=== PATIENT | male | born 1935 | race Caucasian/White ===

== ENCOUNTER 2019-06-17 07:04 | Emergency (ER) | payer MEDICARE, OTHER ==
--- NOTE | 2019-06-17 07:11 | UC ---
UC General HPI - HPI Summary HPI Summary: Patient is an 84-year-old gentleman with a past medical history significant for diabetes, hypertension, BPH status post surgery. Patient had a spinal decompression surgery on Wednesday at [facility]. Patient states it was same day procedure Patient states he had a Loza during the procedure that was removed prior to him leaving. Patient states since this time he has producible output of urine. Patient states he feeling these to go by very little comes out when he tries to people. Patient states he feels pressure was lower belly. Patient has nausea vomiting. Patient also reports decreased stool since his surgery. Patient's taking Vicodin for pain. Patient states he used over-the- counter stool softener starting yesterday. He reports he doesn't feel necessarily constipated states he hasn't had a bowel movement since. No pain in his penis or testicles. No hematuria. No fevers or chills. Patient denies any noted drainage from his wound but has not removed the bandage. Patient has not contacted his surgeon. Patient does have a remote history of BPH for which he had surgery several years ago. Patient medication reviewed this visit. - History of Current Complaint Stated Complaint: BLADDER COMPLAINT Hx Obtained From: Patient, Family/Microbiology Lab Technician - Allergy/Home Medications Allergies/Adverse Reactions: Allergies Allergy/AdvReac Type Severity Reaction Status Date / Time No Known Allergies Allergy Verified 06/17/19 07:24 Home Medications: Home Medications Allopurinol TAB* [Zyloprim 300 MG TAB*] 1 tab PO DAILY 06/17/19 [History Confirmed 06/17/19] Cholecalciferol TAB* [Vitamin D TAB*] 1,000 unit PO DAILY 06/17/19 [History Confirmed 06/17/19] HYDROcodone/ACETAMIN 5-325 MG* [Hudson 5-325 TAB*] 1 tab PO Q4H PRN MDD 6 [History Confirmed 06/17/19] Methocarbamol TAB* [Robaxin 500 MG TAB*] 1 tab PO DAILY 06/17/19 [History Confirmed 06/17/19] Omeprazole 40 mg PO BEDTIME 06/17/19 [History Confirmed 06/17/19] metFORMIN* [Glucophage 500 MG TAB *] 500 mg PO DAILY 06/17/19 [History Confirmed 06/17/19] PMH/Surg Hx/FS Hx/Imm Hx Previously Healthy: No Endocrine History: Diabetes Cardiovascular History: Hypertension - Surgical History Surgical History: Yes Surgery Procedure, Year, and Place: 2011-BILATERAL CATARACT REMOVAL- [facility]NDO[facility] [place]. RIGHT KNEE REPLACED- 2011. RIGHT KNEE ARTHROSCOPY - 2006- [place]. LEFT KNEE ARTHROSCOPY - 2005- [place]. TURP - THEN 2 MORE SINCE. RIGHT FOOT, REPAIR WITH PIN INSERTION - . Trigger Finger Release 07/06 - Family History Known Family History: Positive: Cardiac Disease, Hypertension, Non-Contributory - Social History Occupation: Retired Lives: With Family Alcohol Use: None Substance Use Type: None Smoking Status (MU): Never Smoked Tobacco Review of Systems All Other Systems Reviewed And Are Negative: Yes Constitutional: Positive: Negative Skin: Positive: Negative Gastrointestinal: Positive: Other - decreased Genitourinary: Positive: Frequency, Urgency, Other - Feeling urine retention Is Patient Immunocompromised?: No Physical Exam - Summary Physical Exam Summary: Vital Signs Reviewed: Yes A+Ox3, no distress Eyes: Conjunctiva Clear, ENT: Hearing grossly normal, mmmoist Neck: Positive: Supple Respiratory: Positive: No respiratory distress, No accessory muscle use + CTA throughout no w/r Cardiovascular: RRR nl s1, s2 no m/r CBT <2 sec abd soft + BS, soft mild TTP suprapubic, no guarding, minimal distended, no diffuse tenderness Musculoskeletal Exam: DOLAN x 4 without difficulty Strength Intact, ROM Intact Neurological: Positive: Alert, + sensation throughout Psychological: Positive: Normal Response To helmet hat puncher Skin: Positive: mildline lumbar surgical bandage in place c/d no drainage noted from bathroom. No warmth, erythema surrounding bandage Triage Information Reviewed: Yes Re-Evaluation - Re-Evaluation First Eval Comment: 16 Setswana catheter - unable to pass at despite multiple attempts. Recommend pt to ED for cath and loza placement. spoke to Dr. Talavera in ED - aware pt is coming by private vehicle Course/Dx - Course Course Of Treatment: Patient presents to urgent care stating that he has not been able to easily urinate since his spinal surgery on . Patient states he had a catheter during the procedure. Patient states since this time he feels the need to urinate. Patient states this hasn't seen an very little urine produced. Patient denies nausea vomiting. Patient states he feels mildly distended patient states he just remained like to go again. Patient with a remote history of BPH where she had surgery. No history of prostate cancer. Patient denies any hematuria. Patient also states she's not had good bowel movement since the procedure. Patient states she's on Vicodin. Stretching over-the- counter equate stool softener yesterday. Patient with little results after that. Patient states he does not feel constipated just decreased bowel movements. On exam blood pressure slightly elevated. Patient with a history of same. Patient did produce a little bit a urine here that was negative for infection or blood. Patient with mild tenderness over suprapubic area. Patient states he feels like he needs urinate. We'll place catheter. Patient aware we only have one face, urgent care unable to place we'll send emergency permit. Patient also aware that if we place a catheter and there is not much produced will likely recommend the emergency department for further evaluation and testing. Patient and his are comfortable and in agreement with plan. If there is retained urine, will discharge with catheter in place. Pt with elevated BP - history of same - related to presentation - Diagnoses Provider Diagnosis: Urinary frequency Discharge - Sign-Out/Discharge Documenting (check all that apply): Patient Departure All imaging exams completed and their final reports reviewed: No - Discharge Plan Condition: Stable Disposition: HOME-RECOMMEND TO ED Patient Education Materials: Urinary Retention in Men (ED) Referrals: Raji Lamar MD [Primary Care Provider] - Additional Instructions: The doctor that evaluated you today thinks that you need additional testing that can be completed the emergency department. It is recommended that you go directly to emergency department for further evaluation. This evaluation may include blood work or imaging. This testing will be directed and decided by the provider that evaluate you at the emergency department. If pain becomes worse, you feel lightheaded, you have uncontrolled vomiting, or you have any other concerns while you are being driven to emergency department as recommended to pullover and contact 911. - Billing Disposition and Condition Condition: STABLE Disposition: Home-Recommend to ED
[2019-06-17 07:21] VITALS: BP 172/82
--- NOTE | 2019-06-17 09:01 | UC ---
Course/Dx - Diagnoses Provider Diagnoses: Urinary frequency Discharge - Sign-Out/Discharge Documenting (check all that apply): Patient Departure All imaging exams completed and their final reports reviewed: No Studies - Discharge Plan Condition: Stable Disposition: HOME-RECOMMEND TO ED Patient Education Materials: Urinary Retention in Men (ED) Referrals: Raji Lamar MD [Primary Care Provider] - Additional Instructions: The doctor that evaluated you today thinks that you need additional testing that can be completed the emergency department. It is recommended that you go directly to emergency department for further evaluation. This evaluation may include blood work or imaging. This testing will be directed and decided by the provider that evaluate you at the emergency department. If pain becomes worse, you feel lightheaded, you have uncontrolled vomiting, or you have any other concerns while you are being driven to emergency department as recommended to pullover and contact 911. - Billing Disposition and Condition Condition: STABLE Disposition: Home-Recommend to ED
== END 2019-06-17 08:04 | disposition home health service (06) ==
LOC: UCEAST 07:04
DX: R35.0 Frequency of micturition (principal); Z86.69 Personal history of other diseases of the nervous system and sense organs; Z98.890 Other specified postprocedural states; E11.9 Type 2 diabetes mellitus without complications; I10 Essential (primary) hypertension; Z87.438 Personal history of other diseases of male genital organs; Z79.84 Long term (current) use of oral hypoglycemic drugs
CPT/HCPCS: 81002; 99212; G0463

== ENCOUNTER 2019-06-17 08:18 | Emergency (ER) | payer MEDICARE, OTHER ==
[2019-06-17] MEDS ORDERED: HYDROcodone/ACETAMIN 5-325 MG* 1 TAB PO ONE (10:20)
[2019-06-17 11:12] VITALS: BP 156/75
--- NOTE | 2019-06-17 11:37 | ED ---
GI/ HPI - HPI Summary HPI Summary: Patient is an 84-year-old male with a recent [place]. Since that time, the patient is endorsing left anterior thigh paresthesias, fairly intermittent, worse right now which is affecting his gait. He does endorse severe low back pain and has had this since surgery. During the surgery, for catheter was placed, however was removed immediately following surgery. He was unable to urinate at that time, but was still discharged home. He has not had a bowel movement since the surgery, however he remains on opioids. Since surgery, he states he has developed urinary retention. Endorsing "dribbling" over the past 5 days and the feel to urinate. Denies paresthesias to the penile area or the perianus. Denies upper back pain. - History of Current Complaint Chief Complaint: EDUrogenitalProblems Time Seen by Provider: 06/17/19 08:58 Stated Complaint: CATHETER INSERTION PER PT Hx Obtained From: Patient, Family/Drain Technician Onset/Duration: Started Days Ago Timing: Constant Severity: Moderate Current Severity: Moderate Pain Intensity: 7 Pain Characteristics: Sharp Associated Signs and Symptoms: Positive: UTI Symptoms Aggravating Factor(s): Nothing Alleviating Factor(s): Nothing - Allergy/Home Medications Allergies/Adverse Reactions: Allergies Allergy/AdvReac Type Severity Reaction Status Date / Time No Known Allergies Allergy Verified 06/17/19 08:23 PMH/Surg Hx/FS Hx/Imm Hx Previously Healthy: Yes Endocrine/Hematology History: Denies: Hx Diabetes, Hx Sickle Cell Disease, Hx Thyroid Disease Cardiovascular History: Reports: Hx Hypercholesterolemia, Hx Hypertension - on meds Denies: Hx Pacemaker/ICD, Other Cardiovascular Problems/Disorders Respiratory History: Reports: Other Respiratory Problems/Disorders - new dx pneumonia Denies: Hx Asthma, Hx Chronic Obstructive Pulmonary Disease (COPD) GI History: Reports: Hx Gastroesophageal Reflux Disease - ON NEXIUM Denies: Hx Ulcer History: Denies: Other Problems/Disorders Musculoskeletal History: Reports: Hx Arthritis - KNEES, RIGHT SHOULDER, Hx Bursitis - SHOULDER, DX IN EARLY S Denies: Hx Tendonitis, Other Musculoskeletal History Sensory History: Reports: Hx Cataracts - BILATERAL EYES, Hx Contacts or Glasses - GLASSES, Hx Hearing Aid - BILATERAL Opthamlomology History: Reports: Hx Cataracts - BILATERAL EYES, Hx Contacts or Glasses - GLASSES Neurological History: Denies: Other Neuro Impairments/Disorders Psychiatric History: Denies: Hx Panic Disorder - Cancer History Cancer Type, Location and Year: Basal Cell - Surgical History Surgery Procedure, Year, and Place: 2011-BILATERAL CATARACT REMOVAL- [place] [facility] [place]- 2011 [place]. RIGHT KNEE ARTHROSCOPY - 2006- [place]. LEFT KNEE ARTHROSCOPY - 2005- [place]. TURP - THEN 2 MORE SINCE. RIGHT FOOT, REPAIR WITH PIN INSERTION - . Trigger Finger Release 07/06 Hx Anesthesia Reactions: No - Immunization History Hx Pertussis Vaccination: No Immunizations Up to Date: Yes Infectious Disease History: No Infectious Disease History: Denies: Hx Hepatitis, Hx Human Immunodeficiency Virus (HIV), History Other Infectious Disease, Traveled Outside the [place] in Last 30 Days - Family History Known Family History: Positive: Cardiac Disease, Hypertension, Non-Contributory - Social History Occupation: Unemployed Lives: With Family Alcohol Use: None Hx Substance Use: No Substance Use Type: Reports: None Hx Tobacco Use: No Smoking Status (MU): Never Smoked Tobacco Review of Systems Constitutional: Negative Negative: Fever, Fatigue, Skin Diaphoresis Negative: Palpitations, Chest Pain Negative: Shortness Of Breath, Cough Gastrointestinal: Negative Negative: Abdominal Pain, Vomiting Positive: other - retention Positive: Paresthesia - left anterior thigh. Negative: Headache, Weakness, Numbness, Syncope Psychological: Normal All Other Systems Reviewed And Are Negative: Yes Physical Exam Triage Information Reviewed: Yes Vital Signs On Initial Exam: Initial Vitals Temp Pulse Resp BP Pulse Ox 98.0 F 90 19 198/75 92 06/17/19 08:21 06/17/19 08:21 06/17/19 08:21 06/17/19 08:21 06/17/19 08:21 Vital Signs Reviewed: Yes Appearance: Positive: Well-Appearing, Well-Nourished Skin: Positive: Warm, Skin Color Reflects Adequate Perfusion Head/Face: Positive: Normal Head/Face Inspection Eyes: Positive: EOMI, GABRIELA, Conjunctiva Clear Respiratory/Lung Sounds: Positive: Clear to Auscultation, Breath Sounds Present Cardiovascular: Positive: RRR, Pulses are Symmetrical in both Upper and Lower Extremities Male Genital Exam: Positive: Normal Genitalia, Other - no paresthesias to penis or perianal region. Negative: Epididymal Tenderness, Hernia Mass, Inguinal Tenderness, Scrotum Tenderness (R), Scrotum Tenderness (L), Testicular Tenderness (R), Testicular Tenderness (L), Urethral Discharge Diagnostics - Vital Signs Vital Signs Temp Pulse Resp BP Pulse Ox 06/17/19 11:10 98.1 F 68 20 156/75 95 06/17/19 08:21 98.0 F 90 19 198/75 92 - Laboratory Lab Statement: Any lab studies that have been ordered have been reviewed, and results considered in the medical decision making process. GIGU Course/Dx - Course Course Of Treatment: This patient is evaluated for acute low back pain and urinary retention following an L4-L5 laminectomy from [facility]. Patient states he has not had the ability to urinate since his surgery 4 days ago. He states he has been dribbling, but feels the need to urinate. He has never had this in the past. He does have an enlarged prostate as well as prostate CA. Catheter placed on arrival d/t urinary retention and immediately obtained 600ml. On physical examination, pt has paresthesias to the left anterior thigh without paresthesias to the anal or penile region. Good rectal tone. No Lhermitte sign. Discussed case with Dr. Crowell from [facility] who is covering for Dr. Christianson. He does not feel this requires an MRI based on good rectal tone and advises f/u in the office on Wednesday. - Diagnoses Differential Diagnoses - Male: Urinary Tract Infection, Other - cauda equina, BPH, spinal cord compression, ataxia Provider Diagnoses: Urinary retention Discharge - Sign-Out/Discharge Documenting (check all that apply): Patient Departure Patient Received Moderate/Deep Sedation with Procedure: No - Discharge Plan Condition: Stable Disposition: HOME Patient Education Materials: Urinary Retention in Men (ED), Hernandez Catheter Placement and Care (ED) Referrals: Raji Lamar MD [Primary Care Provider] - Additional Instructions: Please call Dr. Rahman office first thing on Wednesday morning - Billing Disposition and Condition Condition: STABLE Disposition: Home
== END 2019-06-17 11:10 | disposition home or self-care (01) ==
LOC: ED 08:18
DX: R33.9 Retention of urine, unspecified (principal); M54.5 Low back pain; R20.2 Paresthesia of skin; Z98.1 Arthrodesis status; I10 Essential (primary) hypertension; K21.9 Gastro-esophageal reflux disease without esophagitis; Z96.651 Presence of right artificial knee joint; R35.0 Frequency of micturition; Z86.69 Personal history of other diseases of the nervous system and sense organs; Z98.890 Other specified postprocedural states; E11.9 Type 2 diabetes mellitus without complications; Z87.438 Personal history of other diseases of male genital organs; Z79.84 Long term (current) use of oral hypoglycemic drugs
CPT/HCPCS: 51702; 81002; 99212; 99282; G0463

== ENCOUNTER 2019-06-26 18:46 | Emergency (ER) | payer MEDICARE, OTHER ==
--- NOTE | 2019-06-26 21:43 | ED ---
GI/ HPI - HPI Summary HPI Summary: Pt is an 84 y/o M presenting to the ED with a chief complaint of issues. He states he has not been able to urinate since 1700. He has recent surgeries and he believes it is scar tissue causing the issues. He reports mild abd discomfort. - History of Current Complaint Chief Complaint: EDUrogenitalProblems Time Seen by Provider: 06/26/19 21:06 Stated Complaint: CANT URINATE PER PT Hx Obtained From: Patient Onset/Duration: Started Days Ago, Still Present Timing: Constant, Lasting Days Severity: Moderate Current Severity: Moderate Pain Intensity: 7 Location of Pain: Umbilical Associated Signs and Symptoms: Positive: Abdominal Pain, UTI Symptoms - inability to urinate Aggravating Factor(s): Nothing Alleviating Factor(s): Nothing - Allergy/Home Medications Allergies/Adverse Reactions: Allergies Allergy/AdvReac Type Severity Reaction Status Date / Time No Known Allergies Allergy Verified 06/26/19 18:51 PMH/Surg Hx/FS Hx/Imm Hx Previously Healthy: Yes Endocrine/Hematology History: Denies: Hx Diabetes, Hx Sickle Cell Disease, Hx Thyroid Disease Cardiovascular History: Reports: Hx Hypercholesterolemia, Hx Hypertension - on meds Denies: Hx Pacemaker/ICD, Other Cardiovascular Problems/Disorders Respiratory History: Reports: Other Respiratory Problems/Disorders - new dx pneumonia Denies: Hx Asthma, Hx Chronic Obstructive Pulmonary Disease (COPD) GI History: Reports: Hx Gastroesophageal Reflux Disease - ON NEXIUM Denies: Hx Ulcer History: Denies: Other Problems/Disorders Musculoskeletal History: Reports: Hx Arthritis - KNEES, RIGHT SHOULDER, Hx Bursitis - SHOULDER, DX IN EARLY S Denies: Hx Tendonitis, Other Musculoskeletal History Sensory History: Reports: Hx Cataracts - BILATERAL EYES, Hx Contacts or Glasses - GLASSES, Hx Hearing Aid - BILATERAL Opthamlomology History: Reports: Hx Cataracts - BILATERAL EYES, Hx Contacts or Glasses - GLASSES Neurological History: Denies: Other Neuro Impairments/Disorders Psychiatric History: Denies: Hx Panic Disorder - Cancer History Cancer Type, Location and Year: Basal Cell - Surgical History Surgery Procedure, Year, and Place: 2011-BILATERAL CATARACT REMOVAL- DR FERNANDO- [facility] [place]. RIGHT KNEE REPLACED- 2011 [place]. RIGHT KNEE ARTHROSCOPY - [place]. LEFT KNEE ARTHROSCOPY - [place]. TURP - THEN 2 MORE SINCE. RIGHT FOOT, REPAIR WITH PIN INSERTION - . Trigger Finger Release 07/06 Hx Anesthesia Reactions: No Infectious Disease History: No Infectious Disease History: Denies: Hx Hepatitis, Hx Human Immunodeficiency Virus (HIV), History Other Infectious Disease, Traveled Outside the [place] in Last 30 Days - Family History Known Family History: Positive: Cardiac Disease, Hypertension - Social History Alcohol Use: None Hx Substance Use: No Substance Use Type: Reports: None Hx Tobacco Use: No Smoking Status (MU): Never Smoked Tobacco Review of Systems Positive: Abdominal Pain Positive: other - inability to urinate All Other Systems Reviewed And Are Negative: Yes Physical Exam - Summary Physical Exam Summary: Constitutional: Well-developed, Well-nourished, Alert. (-) Distressed Skin: Warm, Dry HENT: Normocephalic; Atraumatic Eyes: Conjunctiva normal Neck: Musculoskeletal ROM normal neck. (-) JVD, (-) Stridor, (-) Tracheal deviation Cardio: Rhythm regular, rate normal, Heart sounds normal; Intact distal pulses; The pedal pulses are 2+ and symmetric. Radial pulses are 2+ and symmetric. (-) Murmur Pulmonary/Chest wall: Effort normal. (-) Respiratory distress, (-) Wheezes, (-) Rales Abd: Fullness of lower abd with mild discomfort, (-) Distension, (-) Guarding, ( -) Rebound Musculoskeletal: (-) Edema Lymph: (-) Cervical adenopathy Neuro: Alert, Oriented x3 Psych: Mood and affect Normal Triage Information Reviewed: Yes Vital Signs On Initial Exam: Initial Vitals Temp Pulse Resp BP Pulse Ox 99.6 F 102 18 168/78 95 06/26/19 18:48 06/26/19 18:48 06/26/19 18:48 06/26/19 18:48 06/26/19 18:48 Vital Signs Reviewed: Yes Diagnostics - Vital Signs Vital Signs Temp Pulse Resp BP Pulse Ox 06/26/19 18:48 99.6 F 102 18 168/78 95 - Laboratory Lab Statement: Any lab studies that have been ordered have been reviewed, and results considered in the medical decision making process. GIGU Course/Dx - Course Course Of Treatment: Pt is an 84 y/o M presenting to the ED with a chief complaint of issues. He states he has not been able to urinate since 0. He has recent surgeries and he believes it is scar tissue causing the issues. He reports mild abd discomfort. Pt's physical exam is nml. The pt's loza catheter was placed. He will be d/c'ed with dx of urinary retention. He is stable and agreeable with this plan. - Diagnoses Provider Diagnoses: Urinary retention Discharge - Sign-Out/Discharge Documenting (check all that apply): Patient Departure Patient Received Moderate/Deep Sedation with Procedure: No - Discharge Plan Condition: Stable Disposition: HOME Patient Education Materials: Urinary Retention in Men (ED) Print Language: UKRAINIAN Referrals: Raji Lamar MD [Primary Care Provider] - Additional Instructions: Follow-up with your urologist on Wednesday as scheduled. - Billing Disposition and Condition Condition: STABLE Disposition: Home - Attestation Statements Document Initiated by Scribe: Yes Documenting Scribe: Damaris Guzmán Provider For Whom Scribe is Documenting (Include Credential): Mariam Echeverria MD. Scribe Attestation: Damaris Gomez, scrtresaed for Mariam Tadeo MD. on 06/28/19 at 0608. Scribe Documentation Reviewed: Yes Provider Attestation: The documentation as recorded by the scribeDamaris accurately reflects the service I personally performed and the decisions made by , Mariam Tadeo MD. Status of Scribe Document: Viewed
[2019-06-26 22:36] VITALS: BP 157/74
== END 2019-06-26 22:30 | disposition home or self-care (01) ==
LOC: ED 18:46
DX: R33.9 Retention of urine, unspecified (principal); E78.00 Pure hypercholesterolemia, unspecified; I10 Essential (primary) hypertension; K21.9 Gastro-esophageal reflux disease without esophagitis; Z79.899 Other long term (current) drug therapy
CPT/HCPCS: 99282